=== PATIENT | female | born 2000 ===

== ENCOUNTER 2021-12-06 21:52 | Inpatient (IN) | payer OTHER ==
[~2021-12-06] VITALS: Ht 162.6 cm; Wt 85.3 kg
[2021-12-06] MEDS ORDERED: PRENATAL + DHA1 EAC1 PO (22:26)
== END 2021-12-09 11:01 | disposition home or self-care (01) | DRG 807 ==
LOC: OBS/DEL 21:52 → LDR 12-07 07:01 → OB/GYN 12-07 07:01
PROVIDERS: ADMIT Obstetrics & Gynecology; ATTEND Obstetrics & Gynecology
PROC: 10E0XZZ Delivery of Products of Conception, External Approach (ICD-10-PCS; principal; 2021-12-07)
PROC: 0HQ9XZZ Repair Perineum Skin, External Approach (ICD-10-PCS; 2021-12-07)
PROC: 4A1HXCZ Monitoring of Products of Conception, Cardiac Rate, External Approach (ICD-10-PCS; 2021-12-07)
DX: O70.0 First degree perineal laceration during delivery (principal); Z37.0 Single live birth; Z3A.37 37 weeks gestation of pregnancy; Z20.822 Contact with and (suspected) exposure to COVID-19